=== PATIENT | male | born 1955 | race Caucasian/White ===

== ENCOUNTER → 2019-02-16 | Outpatient (CLI) | payer BC ==
[~2019-02-16] VITALS: Ht 177.8 cm; Wt 120.2 kg
[~2019-02-16] MED LIST: BYSTOLIC 5 MG5 M1 PO; DARVOCET-N 1001 EACH PO; DOXYCYCLINE 10100 MG PO; EDARBYCLOR 40-1 EACH PO; KEFLEX250 MG PO; LIPITOR 40 MG T40 M1 PO; NOHOMEMEDICATIONS; NORCO 5-325 TA1 EACH PO; PREDNISONE 20 M20 MG PO; VENTOLIN HFA 1818 GM INH; XARELTO20 MG PO; ZPAK PO
--- NOTE | ~2019-02-16 | P ---
[facility] [place] [address] PROCEDURE REPORT Name: RANI HONEYCUTT Room #: REG [facility]#: [id number] Admission: 02/16/19 ������������������ Attend Phys: Dav Caban MD Discharge: ������������������ Date of : 59 Report #: [id number] THIS REPORT FOR: //name// CC: Jimi Sy DATE OF SERVICE: 02/16/2019 PROCEDURE: SVT ABLATION: PREOPERATIVE DIAGNOSIS: Typical atrial flutter. POSTOPERATIVE DIAGNOSIS: Cavotricuspid isthmus dependent flutter. PROCEDURES PERFORMED: 1. SVT ablation, CPT code 40329. 2. EP with left atrial pacing and recording, CPT code 12696. 3. Program stimulation pacing after IV drug infusion, CPT code 99078. 4. 3D mapping, CPT code 54853. HISTORY OF PRESENT ILLNESS: The patient is a 63-year-old male with a history of recurrent atrial flutter despite cardioversion, who is here for atrial flutter ablation. ANESTHESIA: The patient underwent MAC anesthesia with no anesthesia related complications. DESCRIPTION OF PROCEDURE: The patient underwent informed consent. We discussed the details of the procedure including the risks, which include but not limited to bleeding, vascular damage, stroke, MD as well as damage to the cloverdale conduction system requiring permanent pacemaker. He understood these risks and is willing to proceed. The patient was brought to the EP laboratory in a fasting and sedated state and prepped and draped in a sterile fashion. I obtained access to the right femoral vein x 3, placing an 8-Albanian, 7-Albanian and 7-Albanian short sheath using the modified Seldinger technique. Next, under fluoroscopy, I placed a Decapolar catheter and live wire catheter into the right atrium. I placed the SmartTouch ThermoCool ablation catheter in the right atrium as well and created a detailed 3D geometry of the right atrium. Pacing and sensing was performed from the right and left atriums. A 3D activation map demonstrated evidence of counterclockwise cavotricuspid isthmus dependent flutter. At baseline, the patient was in atrial flutter with a ventricular cycle length of 500 milliseconds and atrial cycle length of 250 milliseconds with proximal and distal activation along the Decapolar catheter in a counter clockwise activation [facility] [address] [place] [address] PROCEDURE REPORT Name: YINKARANI Salty Room #: REG [facility]#: [id number] Admission: 02/16/19 ������������������ Attend Phys: Dav Caban MD Discharge: ������������������ Date of : 59 Report #: [id number] in the right atrium. QRS duration was 90 milliseconds, QT interval was 340 milliseconds. Next, ablation was performed at 35 hendricks via a ramp sheath. Towards the end of the line of ablation, there was termination of his atrial flutter to sinus rhythm. Pacing was performed both medial and lateral to the ablation set, and the transisthmus conduction time was 180 milliseconds consistent with bidirectional block. Post-ablation testing: Next, a basic EP study was performed. AV block was noted at 320 milliseconds. Atrial ERP was noted at 210 milliseconds at [address] cycle length. There was no inducible SVT or atrial fibrillation. Isoproterenol infusion was initiated at 2 mcg per minute. AV block was noted at 250 milliseconds. Atrial ERP was noted at 180 milliseconds at a [address] cycle length. Aggressive atrial burst pacing was performed and no a-fib, atrial flutter or SVT was induced. Isoproterenol was discontinued and post-ablation, the patient was in sinus rhythm with a sinus cycle length of 655 milliseconds, MI interval 195 milliseconds, QRS duration 90 milliseconds, QT interval 355 milliseconds. As such, all catheters and sheaths were pulled. Hemostasis was obtained and the patient awoke neurologically and hemodynamically intact. CONCLUSIONS: 1. Successful atrial flutter ablation with evidence of bidirectional block. 2. Normal EP study with no inducible atrial fibrillation, atrial flutter or supraventricular tachycardia. 3. Normal SA taras function. 4. Normal AV taras function. 5. Normal His-Purkinje function. ��������������������������������������������� ���������������������������������������� By: ��������������������������������������������� 1429 0513 Dav Caban MD /nt
[2019-02-16 07:01] VITALS: BP 113/70
[2019-02-16 07:15] LABS: ABSOLUTE NEUTROPHILS 3.7 thou/uL (1.4-8.2); BASOPHILS 1.1 % (0.0-2.0); EOSINOPHILS 12.2 % (0.0-3.0); HEMATOCRIT 45.5 % (42.0-52.0); HEMOGLOBIN 15.3 gm/dL (14.0-18.0); LYMPHOCYTES 33.4 % (24.0-44.0); MCH 29.6 pg (26.0-34.0); MCHC 33.7 g/dL (28.0-37.0); MONOCYTES 10.1 % (1.0-8.0); PLATELET COUNT 314 thou/uL (150-400); POLYS 43.2 % (36.0-66.0); RBC 5.17 mil/uL (4.50-6.00); RDW 13.7 % (10.5-14.5); WBC 8.6 thou/uL (4.0-11.0)
[2019-02-16 07:27] LABS: APTT 27.5 Seconds (24.5-32.8); CALCIUM 9.4 mg/dL (8.5-10.1); CREATININE 0.9 mg/dL (0.7-1.3); INR 1.1; POTASSIUM 4.7 mmol/L (3.5-5.1)
[2019-02-16 07:33] LABS: ALBUMIN 3.7 g/dL (3.4-5.0); TOTAL BILIRUBIN 0.3 mg/dL (<0.1-1.0); TOTAL PROTEIN 7.7 g/dL (6.4-8.2)
== END | disposition home or self-care (01) ==
LOC: CATH 06:36
PROVIDERS: Internal Medicine Cardiovascular Disease
DX: I48.3 Typical atrial flutter (principal); I10 Essential (primary) hypertension; J44.9 Chronic obstructive pulmonary disease, unspecified; I25.2 Old myocardial infarction; E66.09 Other obesity due to excess calories; Z82.49 Family history of ischemic heart disease and other diseases of the circulatory system; Z87.891 Personal history of nicotine dependence; Z98.890 Other specified postprocedural states; Z88.6 Allergy status to analgesic agent; Z79.899 Other long term (current) drug therapy; Z79.01 Long term (current) use of anticoagulants
CPT/HCPCS: 62110; 62900; 70005

== ENCOUNTER → 2019-05-29 | Outpatient (CLI) | payer BC, OTHER ==
--- NOTE | ~2019-05-29 | P ---
[facility] [place] [address] PROCEDURE REPORT Name: RANI HONEYCUTT [id number] Admission: 05/29/19 ������������������ Attend Phys: Dav Caban MD Discharge: ������������������ Date of : 59 Report #: [id number] THIS REPORT FOR: //name// CC: Dav Sy IMPLANTABLE LOOP RECORDER INSERTION: PREOPERATIVE DIAGNOSIS: Atrial flutter. POSTOPERATIVE DIAGNOSIS: Atrial flutter. DESCRIPTION OF PROCEDURE: The patient underwent informed consent. The patient was prepped and draped in a sterile fashion. I injected lidocaine at the incision site. Incision was made. The device was injected under the skin and I sutured the incision closed and placed some surgical glue on the outer skin layer. There were no procedure related complications. The implanted device was a [employer] Confirm, model #3500, serial #[id number]. R waves were 0.29 millivolts. The device was programmed to detect AFib, lasting greater than 5 minutes and looking for any pauses of greater than 5 seconds. CONCLUSION: Successful insertion of an implantable loop recorder. ��������������������������������������������� ���������������������������������������� By: ��������������������������������������������� 0857 2332 Dav Caban MD /nt
== END | disposition home or self-care (01) ==
LOC: CATH 07:43
DX: I48.92 Unspecified atrial flutter (principal); J44.9 Chronic obstructive pulmonary disease, unspecified; Z88.6 Allergy status to analgesic agent; Z79.899 Other long term (current) drug therapy; Z79.01 Long term (current) use of anticoagulants

== ENCOUNTER 2019-10-08 05:55 | Day surgery (SDC) | payer BC, OTHER ==
[~2019-10-08] VITALS: Ht 180.3 cm; Wt 117.9 kg
[~2019-10-08 05:55] MED LIST changes: +AMLODIPINE BESY10 MG PO; +BYSTOLIC10 MG PO
[2019-10-08 07:05] VITALS: BP 115/77
--- NOTE | 2019-10-09 14:07 | PATH ---
[facility] [place] [address] PATHOLOGY RPT PROCEDURE Name: RANI HONEYCUTT Room #: DEP [facility] M.R.#: [id number] Admission: 10/08/19 Date of : 59 Discharge: 10/08/19 Report #: [id number] Path Case #: [id number] [facility] Accession Number: [id number] . 01 Material submitted: . lid - LEFT LOWER LID LESION. Modifiers: left, lower . 01 Clinical history: . excision of tumor . 02 Frozen section diagnosis: . FROZEN SECTION DIAGNOSIS: FSA1, left lower lid lesion, excision: - Negative for invasive carcinoma at margins on FS slide. - These findings are discussed with Dr. Magan Fierro in OR-6 at [facility] and a written report is placed in the patient's chart. . (IUV:pit; 10/08/2019) . FROZEN SECTION GROSS DESCRIPTION: The specimen is received fresh from the OR labeled with the patient's name, "left lower lid lesion", and consists of an inverted triangular specimen measuring 1.5 x 1.0 x 0.5 cm. The specimen is oriented as superior, lateral, inferior and medial. The superior margin is inked yellow, the lateral margin is inked black, the infero-medial margin is inked blue and the supero-medial margin is inked green. At this point the specimen is sectioned into four pieces and submitted for frozen section as FSA1. This is subsequently submitted for permanent sections as A1. (IUV:pit; 10/08/2019) . Frozen section performed at [facility], [address], [place] [address]. IZV/QTP . 02 Diagnosis: Skin, left lower lid lesion, excision: - BASAL CELL CARCINOMA. - Margins of resection free of malignancy. . (IUV:mml; 10/09/2019) [facility] 10/09/2019 1208 Local . 02 Electronically signed: . Sanjana Fagan MD, Pathologist NPI- [id number] . 01 [facility] [address] [facility] [place] [address] PATHOLOGY RPT PROCEDURE Name: RANI HONEYCUTT Room #: DEP [facility]#: [id number] Admission: 10/08/19 Date of : 59 Discharge: 10/08/19 Report #: [id number] Path Case #: [id number] Gross description: . SEE FROZEN SECTION FOR GROSS DESCRIPTION /QTP 10/08/2019 1342 Local . 02 Pathologist provided ICD-10: C44.1192 . 02 CPT . 086918, 194672 Specimen Comment: A courtesy copy of this report has been sent to [phone] Specimen Comment: Report sent to Performed at: [address], [place], [place] [id number] MD Fransisco Lombardi MD Phone: [phone] Performed at: [address] [id number] MD Sanjana Fagan MD Phone: [phone]
--- NOTE | 2019-10-12 06:15 | O ---
[facility] [place] [address] OPERATIVE REPORT Name: RANI HONEYCUTT Room #: DEP [facility]..#: [id number] Admission: 10/08/19 Attend Phys: Magan Fierro MD Discharge: 10/08/19 Date of : 59 Report #: [id number] THIS REPORT FOR: //name// CC: TIMOTHY Fierro DATE OF SERVICE: 10/08/2019 PREOPERATIVE DIAGNOSIS: Tumor of left lower lid. POSTOPERATIVE DIAGNOSIS: Basal cell carcinoma. PROCEDURE: Excision of tumor of left lower lid with frozen section, control of margins and myocutaneous flap repair of defect. SURGEON: Magan Fierro M.D. TRANSFORMER ASSEMBLER: None. ANESTHESIA: MAC. COMPLICATIONS: None. INDICATIONS FOR SURGERY: This pleasant 64-year-old gentleman has an ulcerative lesion in his lateral left lower lid that appears to most likely be neoplastic. He presents today for excision of this lesion with frozen sections and subsequent repair of that defect. Informed consent was obtained to include but not limited to the potential risk for loss of vision, bleeding, infection, failure to improve the problem, the potential need for further surgery or treatment. DESCRIPTION OF PROCEDURE: The patient was taken to the operating room where 2% Xylocaine with epinephrine mixed with equal parts 0.75% Marcaine with Wydase was administered transcutaneously and transconjunctivally to the left lower lid, the left lateral canthus, the left cheek and the left infratemporal fossa. He was subsequently prepped and draped in the usual sterile fashion. A fine tip skin marking pen was then utilized to outline the lesion including 1-2 mm of normal appearing tissue. The incisions were then made perpendicularly across the eyelid margin and drawn down to a point in the premalar space. That specimen was then oriented on a drawing for the waiting pathologist. The field was dried with diligent pinpoint monopolar cautery. The pathologist snap froze that specimen and found that the margins were clear and that she felt that the lesion was most likely a basal cell carcinoma. [facility] [address] [place] [address] OPERATIVE REPORT Name: RANI HONEYCUTT Room #: DEP [facility] M.R.#: [id number] Admission: 10/08/19 Attend Phys: Magan Fierro MD Discharge: 10/08/19 Date of : 59 Report #: [id number] Attention was then turned to repair the defect. A myocutaneous flap was then developed laterally to be rotated medially. Hemostasis was then re-achieved. The flap was then advanced and secured with interrupted buried 5-0 Vicryl sutures deep. The tarsal plate was reapproximated with interrupted 5-0 Vicryl sutures. The eyelid margin was reapproximated with interrupted 7-0 Vicryl sutures. The subcutaneous structures more superficially were closed with subcutaneous Vicryl sutures and then a final skin closure of 6-0 plain gut. The wounds were then cleaned and dressed with erythromycin ointment. The patient subsequently transported to the recovery area having tolerated the procedure well with no anesthetic or operative complications being noted. <ELECTRONICALLY SIGNED> By: Magan Fierro MD 10/12/19 0615 0830 0841 Magan Fierro MD /nt
== END 2019-10-08 11:30 | disposition home or self-care (01) ==
LOC: OR 05:55 → TBA 05:55 → OR 09:10
DX: C44.1192 Basal cell carcinoma of skin of left lower eyelid, including canthus (principal); I10 Essential (primary) hypertension; I25.10 Atherosclerotic heart disease of native coronary artery without angina pectoris; E78.00 Pure hypercholesterolemia, unspecified; I48.4 Atypical atrial flutter; I48.91 Unspecified atrial fibrillation; J42 Unspecified chronic bronchitis; G47.30 Sleep apnea, unspecified; Z98.890 Other specified postprocedural states; Z79.899 Other long term (current) drug therapy; Z85.828 Personal history of other malignant neoplasm of skin; Z87.891 Personal history of nicotine dependence; Z79.01 Long term (current) use of anticoagulants
CPT/HCPCS: 50010; 50101; 50386; 50398; 51636; 56528; 56531; 62110; 62850; 70005

== ENCOUNTER → 2021-04-05 | Outpatient (CLI) | payer BC, OTHER | LOC: SJCVCIMAG 08:49 | PROVIDERS: ATTEND Internal Medicine Cardiovascular Disease | DX: I11.9 Hypertensive heart disease without heart failure (principal); R94.31 Abnormal electrocardiogram [ECG] [EKG]; I48.92 Unspecified atrial flutter; I48.0 Paroxysmal atrial fibrillation; G47.33 Obstructive sleep apnea (adult) (pediatric); I25.10 Atherosclerotic heart disease of native coronary artery without angina pectoris; I48.3 Typical atrial flutter; R00.1 Bradycardia, unspecified; E78.00 Pure hypercholesterolemia, unspecified; J47.9 Bronchiectasis, uncomplicated; Z87.891 Personal history of nicotine dependence; Z79.899 Other long term (current) drug therapy; Z79.82 Long term (current) use of aspirin; Z82.49 Family history of ischemic heart disease and other diseases of the circulatory system ==

== ENCOUNTER 2021-09-02 12:12 | Emergency (ER) | payer OTHER, BC ==
[~2021-09-02] VITALS: Ht 190.5 cm; Wt 113.4 kg
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
[2021-09-02 13:07] LABS: HEMATOCRIT 43.6 % (42.0-52.0); HEMOGLOBIN 14.6 gm/dL (14.0-18.0); MCH 29.6 pg (26.0-34.0); MCHC 33.5 g/dL (28.0-37.0); MCV 88.3 fL (80.0-100.0); RBC 4.94 mil/uL (4.50-6.00); RDW 13.9 % (10.5-14.5); WBC 8.9 thou/uL (4.0-11.0)
[2021-09-02 13:23] LABS: CALCIUM 8.5 mg/dL (8.5-10.1); CREATININE 0.9 mg/dL (0.7-1.3); POTASSIUM 4.3 mmol/L (3.5-5.1)
[2021-09-02 13:29] LABS: ALBUMIN 3.3 g/dL (3.4-5.0); TOTAL BILIRUBIN 0.2 mg/dL (0.2-1.0); TOTAL PROTEIN 7.1 g/dL (6.4-8.2)
[2021-09-02] MEDS ORDERED: METHOCARBAMOL500 M2 PO (15:25)
[2021-09-02 16:00] VITALS: BP 120/60
== END 2021-09-02 15:57 | disposition home or self-care (01) ==
LOC: ER 12:12
PROVIDERS: Nurse Practitioner Family
DX: S16.1XXA Strain of muscle, fascia and tendon at neck level, initial encounter (principal); S29.012A Strain of muscle and tendon of back wall of thorax, initial encounter; S80.01XA Contusion of right knee, initial encounter; S20.212A Contusion of left front wall of thorax, initial encounter; G47.30 Sleep apnea, unspecified; J44.9 Chronic obstructive pulmonary disease, unspecified; I10 Essential (primary) hypertension; I25.10 Atherosclerotic heart disease of native coronary artery without angina pectoris; I48.91 Unspecified atrial fibrillation; F17.210 Nicotine dependence, cigarettes, uncomplicated; Z98.890 Other specified postprocedural states; Z85.828 Personal history of other malignant neoplasm of skin; Z79.891 Long term (current) use of opiate analgesic; Z79.899 Other long term (current) drug therapy; V43.52XA Car driver injured in collision with other type car in traffic accident, initial encounter; Y93.89 Activity, other specified; Y92.89 Other specified places as the place of occurrence of the external cause; Y99.8 Other external cause status

== ENCOUNTER → 2021-10-10 | Outpatient (CLI) | payer BC, OTHER ==
[~2021-10-10] MED LIST changes: +METHOCARBAMOL500 M2 PO
--- NOTE | ~2021-10-10 | P ---
[facility] [place] [address] PROCEDURE REPORT Name: RANI HONEYCUTT Room #: REG [facility]#: [id number] Admission: 10/10/21 Attend Phys: Dav Caban MD Discharge: Date of : 59 Report #: [id number] THIS REPORT FOR: cc: Jalen Sy MD, Michael D. MD Couchonnal, Luis F. MD ~ DATE OF SERVICE: 10/10/2021 PROCEDURE: Removal of implantable loop recorder. PREOPERATIVE DIAGNOSIS: Implantable loop recorder at end of service. POSTOPERATIVE DIAGNOSIS: Implantable loop recorder at end of service. DESCRIPTION OF PROCEDURE: The patient underwent informed consent. He was prepped in a sterile fashion. I then injected lidocaine at the prior incision site. The incision was made. The device was extracted and a single layer of suture was performed. A dressing was placed. There were no procedural related complications. CONCLUSION: Successful explantation of implantable loop recorder. By: 1604 0133 Dav Caban MD /nt
[2021-10-10 08:48] VITALS: BP 134/76
== END | disposition home or self-care (01) ==
LOC: CATH 06:48
PROVIDERS: ATTEND Internal Medicine Cardiovascular Disease
DX: Z45.09 Encounter for adjustment and management of other cardiac device (principal); J44.9 Chronic obstructive pulmonary disease, unspecified; Z98.890 Other specified postprocedural states; Z79.899 Other long term (current) drug therapy

== ENCOUNTER → 2021-12-08 | Outpatient (CLI) | payer BC, OTHER | LOC: SJCVCIMAG 07:40 | PROVIDERS: ATTEND Internal Medicine Cardiovascular Disease | DX: Z01.810 Encounter for preprocedural cardiovascular examination (principal); I25.89 Other forms of chronic ischemic heart disease; E78.5 Hyperlipidemia, unspecified; I10 Essential (primary) hypertension; Z87.891 Personal history of nicotine dependence ==